=== PATIENT | female | born 1985 | race Caucasian/White ===

== ENCOUNTER 2018-07-29 05:29 | Inpatient (IN) | payer OTHER ==
[~2018-07-29] VITALS: Ht 170.2 cm; Wt 89.7 kg
[~2018-07-29 05:29] MED LIST: ACET-1157 PO
[2018-07-29 05:34] VITALS: Ht 170.2 cm; Wt 89.7 kg
[2018-07-29] MEDS ORDERED: PREN-6 PO (05:38)
[2018-07-29] MEDS ORDERED: METHYLERGONOVINE 0.2 MG INJ IM PRN ×2 (06:00→12:00)
[2018-07-29] MEDS ORDERED: CEFAZOLIN 2 GM/50 ML (PMX) 50 ML IVPB SCH ×2 (06:00→12:00)
[2018-07-29] MEDS ORDERED: CARBOPROST 250 MCG INJ IM PRN ×2 (06:00→12:00)
[2018-07-29] MEDS ORDERED: OXYTOCIN 30 UNITS/LR 500 ML IV SCH ×2 (06:00→11:50)
[2018-07-29] MEDS ORDERED: MISOPROSTOL 200 MCG TAB PR PRN ×2 (06:00→12:00)
[2018-07-29] MEDS ORDERED: OXYTOCIN 30 UNITS/LR 500 ML IV PRN ×2 (06:00→12:00)
[2018-07-29] MEDS: LACTATED RINGER'S 1,000 ML IV SCH ×3 (06:34→23:53)
[2018-07-29] MEDS ORDERED: CITRIC ACID/NA CITRATE 30 ML CUP ONE (07:26)
--- NOTE | 2018-07-29 07:28 | PREAC ---
Date/Time of Note Date/Time of Note DATE: 07/29/18 TIME: 07:27 Anesthesia Eval and Record Evaluation Time Pre-Procedure Interview DATE: 07/29/18 TIME: 07:27 Age 33 Sex female NPO: 8 hrs Preoperative diagnosis repeat csection, sterlization Planned procedure c section BTL Past Medical History Past Medical History: None Surgery & Anesthesia Issues No known issue Meds Anticoagulation: No Beta Roopa within 24 hr: No Reason Beta Roopa not given: Pt. not on B-Roopa Reported Medications Vits #93-Iron Fum-FA ( Formula) 1 Each Tablet, 1 TAB PO DAILY, TAB 07/29/18 Acetaminophen With Codeine (Tylenol W-Codeine #3 Tablet) 1 Tab Tablet, 1 TAB PO QID 05/20/11 Current Medications Lactated Ringer's 1,000 ml @ 125 mls/hr Q8H IV Last administered on 07/29/18at 06:34; Admin Dose 125 MLS/HR; Start 07/29/18 at 05:38 Cefazolin Sodium/ Dextrose 50 ml @ 100 mls/hr ONCE IVPB ; Start 07/29/18 at 06: 00 Oxytocin/Lactated Ringer's 500 ml @ 125 mls/hr POST IV ; Start 07/29/18 at 06:00 Oxytocin/Lactated Ringer's 500 ml @ 0 mls/hr ONCE PRN IV .VAGINAL BLEEDING; Start 07/29/18 at 06:00 Methylergonovine Maleate (Methergine) 0.2 mg ONCE PRN IM .VAGINAL BLEEDING; Start 07/29/18 at 06:00 Carboprost Tromethamine (Hemabate) 250 mcg ONCE PRN IM .VAGINAL BLEEDING; Start 07/29/18 at 06:00 Misoprostol (Cytotec) 1,000 mcg ONCE PRN TN .VAGINAL BLEEDING; Start 07/29/18 at 06:00 Meds reviewed: Yes Allergies Coded Allergies: No Known Drug Allergy (Verified Allergy, Unknown, 07/29/18) Allergies Reviewed: Yes Labs/Studies Labs Reviewed: Reviewed by anesthesiologist Result Diagram: 07/29/18 0600 Laboratory Tests 07/29/18 06:00 test: Positive Studies: ECG (n/a), CXR (n/a) Pre-procedure Exam Airway: Adequate mouth opening Mallampati: Mallampati I Teeth: Normal Lung: Normal Heart: Normal ASA Physical Status ASA physical status: 2 Emergency: None Planned Anesthetic Neuraxial: Spinal Planned Pain Management Sub-arachniod narcotics Pre-operative Attestations Prior to commencing anesthesia and surgery, the patient was re-evaluated, there was verification of: *The patient's identity *The results of appropriate recent lab work and preoperative vital signs *The above evaluation not changing prior to induction *Anesthetic plan, risk benefits, alternative and complications discussed with patient/family; questions answered; patient/family understands, accepts and wishes to proceed. ALICIA KOHLER MD July 29, 2018 07:28
[2018-07-29] MEDS ORDERED: CITRIC ACID/NA CITRATE 30 ML CUP PO ONE (07:30)
[2018-07-29] MEDS ORDERED: KETOROLAC 30 MG INJ ONE (07:41)
[2018-07-29] MEDS ORDERED: morphine SULFATE/PF (10 MG/10 ML) INJ ONE (07:41)
[2018-07-29] MEDS ORDERED: METOCLOPRAMIDE 10 MG INJ ONE (07:41)
[2018-07-29] MEDS ORDERED: ONDANSETRON 4 MG INJ ONE (07:41)
[2018-07-29] MEDS ORDERED: EPHEDrine 25 MG/5 ML SYG ONE (07:53)
[2018-07-29] MEDS ORDERED: PHENYLephrine (100 MCG/ML) 10ML SYG ONE (07:59)
--- NOTE | 2018-07-29 08:05 | PREOPHP ---
DATE OF ADMISSION: 07/29/2018 HISTORY OF PRESENT ILLNESS: Ms. Sarah Flaherty is a 33-year-old 4, para 3, EDC 08/04/2018 intrau terine at 39 weeks gestational age with a history of previous delivery x3, admitte d today for elective repeat delivery with tubal sterilization. She denies any contractions, vaginal bleeding, or discharge. Her care took place at [facility]. PAST MEDICAL HISTORY: None. MEDICATIONS: vitamins. PAST SURGICAL HISTORY: x3 previous section. OBSTETRIC HISTORY: x3 previous section. GYNECOLOGIC HISTORY: 12, regular 3 to 4 days. She denies any sexually transmitted infections. Sexu ally active with 1 partner. SOCIAL HISTORY: She denies any smoking, drugs or alcohol. FAMILY HISTORY: None. REVIEW OF SYSTEMS: All within normal except history of present illness. PHYSICAL EXAMINATION: HEENT: Within normal. LUNGS: CTA bilateral. CARDIOVASCULAR: S1, S2, regular rhythm. ABDOMEN: Gravid, nontender. Negative CVA bilateral. EXTREMITIES: Negative calf tenderness. PELVIC: Vaginal exam deferred. heart tracing category 1. ASSESSMENT: Intrauterine at 39 weeks gestational age, previous x3, desires elect vance repeat delivery with bilateral tubal sterilization, declines vaginal after cesarea n. PLAN: Consent for repeat delivery with bilateral tubal sterilization. Risks, benefits and alternatives were explained and all questions were answered. Dictated By: JOYCE JUDD/SHANICE Conf#: [id number] DID#: [id number] CC: JOYCE GRIFFITH MD;*EndCC*
[2018-07-29] MEDS ORDERED: OXYTOCIN 30 UNITS/LR 500 ML IV ONE (08:37)
--- NOTE | 2018-07-29 08:49 | OPPN ---
Date/Time of Note Date/Time of Note DATE: 07/29/18 TIME: 08:47 Operative Report Planned Procedure Procedure date July 29, 2018 Procedure(s) repeat low transverse CD with bilateral tubal salpingectomy Performed by see signature line Radiology Teacher: CATHI PIERSON M.D. 2nd Radiology Teacher none Anesthesiologist: ALICIA KOHLER MD Pre-procedure diagnosis Intrauterine at 39 weeks gestational age, previous x3, desires elective repeat delivery with bilateral tubal sterilization, declines vaginal after [id number] Anesthesia Type: Hsbsu2f spinal Post-Procedure Post-procedure diagnosis same Findings a viable male 9/9 weight 3036. normal uterus tubes and ovaries Estimated Blood Loss: 500 - 600 mls (500) Specimen(s) right and left fallopian tubes Grafts/Implant(s) none Complication(s) none JOYCE GRIFFITH MD July 29, 2018 08:49
[2018-07-29] MEDS ORDERED: ONDANSETRON 4 MG INJ IV PRN ×2 (09:00)
[2018-07-29] MEDS ORDERED: DIPHENHYDRAMINE 50 MG INJ IV PRN ×2 (09:00)
[2018-07-29] MEDS ORDERED: NALOXONE (0.4 MG/ML) INJ IV PRN (09:00)
[2018-07-29] MEDS ORDERED: morphine 2 MG INJ IV PRN ×6 (09:00)
[2018-07-29] MEDS ORDERED: KETOROLAC 30 MG INJ IV PRN ×2 (09:00)
[2018-07-29 12:00] VITALS: BP 99/62; PULSE 77; RESP 17
[2018-07-29] MEDS ORDERED: NA PHOSPHATE/BIPHOS 133 ML ENEMA PR PRN (12:00)
[2018-07-29] MEDS ORDERED: NACL 0.9% 3 ML SYG IV SCH (12:00)
[2018-07-29] MEDS ORDERED: OXYCODONE/ACETAMINOPHEN (5/325) TAB PO PRN ×2 (12:00)
[2018-07-29] MEDS ORDERED: LANOLIN HPA 1 PKT TOP PRN (12:00)
[2018-07-29] MEDS: IBUPROFEN 800 MG TAB PO SCH ×2 (14:00→21:31)
[2018-07-29] MEDS: CEFAZOLIN 2 GM/50 ML (PMX) 50 ML IVPB SCH ×2 (15:27→23:52)
[2018-07-29 16:00] VITALS: BP 93/55; PULSE 85; RESP 17
[2018-07-29 20:00] VITALS: BP 102/54; PULSE 80; RESP 19
[2018-07-30 04:11] VITALS: BP 96/56; PULSE 86; RESP 21
[2018-07-30] MEDS: LACTATED RINGER'S 1,000 ML IV SCH ×2 (05:38→13:38)
[2018-07-30] MEDS: IBUPROFEN 800 MG TAB PO SCH ×3 (06:00→21:58)
--- NOTE | 2018-07-30 07:39 | PAC ---
Date/Time of Note Date/Time of Note DATE: 07/30/18 TIME: 07:39 Post-Anesthesia Notes Post-Anesthesia Note Last documented vital signs Vital Signs Date Temp Pulse Resp B/P (MAP) Pulse Ox O2 O2 Flow FiO2 Time Delivery Rate 07/30/18 98.2 86 21 96/56 (69) 97 Room Air 04:11 07/29/18 96 20:00 Activity: WNL Respiratory function: WNL Cardiovascular function: WNL Mental status: Baseline Pain reasonably controlled: Yes Hydration appropriate: Yes Nausea/Vomiting absent: No ALICIA KOHLER MD July 30, 2018 07:39
--- NOTE | 2018-07-30 07:40 | OPPN ---
Date/Time of Note Date/Time of Note DATE: 07/30/18 TIME: 07:39 Anesthesia Follow up Anesthesia Follow up Last documented vital signs Vital Signs Date Temp Pulse Resp B/P (MAP) Pulse Ox O2 O2 Flow FiO2 Time Delivery Rate 07/30/18 98.2 86 21 96/56 (69) Room Air 04:11 07/29/18 96 20:00 Respiratory function: WNL Cardiovascular function: WNL Comments A 33 year old female s/p spnal duramorph for post op pain per surgeon pod 1 is fine . no pain itching, headache, n/v, neural deficit. care per surgery ALICIA KOHLER MD July 30, 2018 07:40
[2018-07-30] MEDS: CEFAZOLIN 2 GM/50 ML (PMX) 50 ML IVPB SCH (07:49)
[2018-07-30 07:55] VITALS: BP 94/53; PULSE 80; RESP 18
--- NOTE | 2018-07-30 08:26 | QN ---
Documentation Comment progress note pod 1 patient seen and evaluated no complaints castro clear vs stable afebrile ab soft nt dressing clean/dry extremity no edema no calf tenderness a/ sp cd with tubal sterilization pod 1 stable afebrile p/ iron supplement encourage ambulation repeat h/h in am JOYCE GRIFFITH MD July 30, 2018 08:26
--- NOTE | 2018-07-30 08:35 | OPR ---
DATE OF OPERATION: PREOPERATIVE DIAGNOSES: Intrauterine at 39 weeks gestational age, previous x3, d esires elective repeat delivery with bilateral tubal sterilization, declines vaginal a fter section. POSTOPERATIVE DIAGNOSES: Intrauterine at 39 weeks gestational age, previous x3, desires elective repeat delivery with bilateral tubal sterilization, declines vaginal after section. PROCEDURE PERFORMED: Repeat low transverse delivery with bilateral tubal salpingectomy. SURGEON: Jose A Griffith M.D. ICE CARVER: Dr. Loza. ANESTHESIA: Spinal. COMPLICATIONS: None. ESTIMATED BLOOD LOSS: 500 mL. FINDINGS: A viable male, 9 and 9 respectively at 1 and 5 minutes, weight 3036 grams. Normal u terus, tubes and ovaries. PATHOLOGY: Right and left fallopian tube. PROCEDURE: After explaining the risks, benefits and alternatives, the patient had consent signed in chart, the patient was taken to the operating room where spinal anesthesia was found to be adequate. She was then prepared and draped in normal sterile fashion in dorsal supine position with a leftward tilt. A Pfannenstiel skin incision was then made with a scalpel and carried to the underlying of th e fascia. The fascia was incised in the midline and incision was extended laterally with Parekh scisso rs. The superior aspect of the fascial incision was grasped with curved clamps, elevated and the und erlying rectus muscles dissected off bluntly. Attention was then turned to the inferior aspect of in cision, which in similar fashion was grasped, tented up with curved clamps and the rectus muscles dis sected off bluntly. The rectus muscle was in midline, peritoneum identified, entered sharp ly with Metzenbaum scissors. The peritoneal incision was extended superiorly inferiorly with good vi sualization of bladder. The bladder blade was inserted and the lower uterine segment incised in paul sverse fashion with a scalpel. The uterine incision was extended laterally. The bladder blade was r emoved. The 's head delivered atraumatically. The nose and mouth were suctioned and cord clam ped and cut. The infant was handed off to awaiting parts and service manager. The placenta was then removed. Th e uterus extracted of all clots and debris. The uterine incision was repaired with 1-0 chromic in a running locked fashion. A second layer of same suture was used for imbrication obtaining excellent h emostasis. At this point, the right fallopian tube was grasped with a Kevin. The right fallopian tube was ligated with 2-0 plain gut x2 and excised and sent to pathology. Similarly, the left fallop daniela tube was ligated and excised. Good hemostasis was noted. The uterus was returned to the abdomen . The gutters were cleared of all clots. The peritoneum and rectus abdominis muscles were reapproxi mated with 2-0 Vicryl in interrupted fashion. The fascia was reapproximated with 0 Vicryl in a runni ng fashion. The skin was closed with gagandeep. The patient tolerated procedure well. All sponge, la p and needle counts were correct. The patient was taken to recovery room in stable condition. Dictated By: JOSE A JUDD/SHANICE Conf#: [id number] DID#: [id number] CC: JOSE A GRIFFITH MD;*EndCC*
[2018-07-30] MEDS: SENNA/DOCUSATE NA (8.6MG/50MG) TAB PO SCH ×2 (09:57→21:58)
[2018-07-30] MEDS: FERROUS SULFATE (EC) 325 MG TAB PO SCH ×2 (09:57→21:58)
[2018-07-30 16:00] VITALS: BP 94/58; PULSE 89; RESP 20
[2018-07-30 20:00] VITALS: BP 108/66; PULSE 18; RESP 18
[2018-07-31 04:00] VITALS: BP 97/53; PULSE 80; RESP 18
[2018-07-31] MEDS: IBUPROFEN 800 MG TAB PO SCH ×3 (06:13→21:49)
--- NOTE | 2018-07-31 06:21 | PD.PPDC ---
[employer]GRAM[employer] Discharge Instruction Condition Hsiyd4Bv Patient Condition: Tuhzw2w Fair Diet Ikbws8Qq Diet: Oiffq0h Resume Regular Diet Activity/Restrictions Tfoyb6Wq Activity: Uilnh2t Normal Activity May Shower Qprcj5Om Restrictions: Sdkoo0j No Exercising No Lifting No Driving No Sexual Activity Nothing in the Vagina No [place] No Tampons, douche Follow-up Follow-up with Physician: 3, Day/Days Provider Information: to remove gagandeep Return to clinic for Zlglb0Ce EYE CARE PROFESSIONAL Instructions: Octmf3l Fever greater than 101 Chills Worsening abdominal pain Excessive Vaginal Bleeding More than 2 pads per hour Unable to tolerate diet Dugyy9Qc OB Instructions: Xavos1e Breast Tenderness Depression Blurried Vision Headache Ckmdt1Ok Surgical Instructions: Dvjre6n Incisional Drainage Incisional Redness JOYCE GRIFFITH MD July 31, 2018 06:21
--- NOTE | 2018-07-31 06:21 | QN ---
Documentation Comment progress note pod 2 patient seen and evaluated no complaints castro clear vs stable afebrile ab soft nt c/d/i no distention extremity no edema no calf tenderness a/ sp cd with tubal sterilization pod 2 stable afebrile p/ discharge home tomorrow JOYCE GRIFFITH MD July 31, 2018 06:21
[2018-07-31 08:00] VITALS: BP 99/56; PULSE 75; RESP 16
[2018-07-31] MEDS: FERROUS SULFATE (EC) 325 MG TAB PO SCH ×2 (09:35→21:49)
[2018-07-31] MEDS: SENNA/DOCUSATE NA (8.6MG/50MG) TAB PO SCH ×2 (09:35→21:49)
[2018-07-31 15:35] VITALS: BP 98/57; PULSE 76; RESP 18
[2018-07-31 20:45] VITALS: BP 104/62; PULSE 90; RESP 18
--- NOTE | 2018-08-01 02:44 | DS ---
DATE OF ADMISSION: 07/29/2018 DATE OF DISCHARGE: 08/01/2018 PRIMARY DIAGNOSIS: Intrauterine at 39 weeks gestational age, previous x3, desire s elective repeat delivery with bilateral tubal sterilization. PROCEDURE: Repeat low transverse delivery with bilateral tubal salpingectomy. CONDITION ON DISCHARGE: Stable. ACTIVITY: None per vagina, no lifting x6 weeks. DIET: Regular. MEDICATIONS ON DISCHARGE: 1. Motrin. 2. Iron. 3. Colace. DISCHARGE SUMMARY: Ms. Sarah Flaherty underwent a repeat delivery with bilateral tubal steriliz ation on 07/29/2018. She had a viable male, 9 and 9 respectively at 1 and 5 minutes, weight 30 36 grams. She had an uneventful postop day #1 and #2. She was discharged on postop day #3. Her inc ision is clean, dry, and intact. She was ambulating, tolerating diet, positive flatulence, positive bowel and she will follow up in the clinic in 2 to 3 days to remove her gagandeep. Dictated By: JOYCE JUDD/SHANICE Conf#: [id number] DID#: [id number]
[2018-08-01 04:30] VITALS: BP 95/65; PULSE 75; RESP 19
[2018-08-01] MEDS: IBUPROFEN 800 MG TAB PO SCH ×2 (05:52→13:36)
[2018-08-01 08:00] VITALS: BP 105/56; PULSE 79; RESP 16
[2018-08-01] MEDS: SENNA/DOCUSATE NA (8.6MG/50MG) TAB PO SCH (09:50)
[2018-08-01] MEDS: FERROUS SULFATE (EC) 325 MG TAB PO SCH (09:50)
--- NOTE | 2018-08-01 13:07 | DS ---
Date/Time of Note Date/Time of Note DATE: 08/01/18 TIME: 13:06 Obstetrical Discharge Record Final Diagnosis Final Diagnosis: Term delivered Section Section: Repeat Complications Augmentation: No Induction: No Rupture of Membranes: No Condition on Discharge Physical Assessment Last Vitals: vss afebrile Voiding: Yes Bowel Movement: Yes Breast: Soft, non-tender Fundus: Firm Abdomen and Incision: soft wound dry Episiotomy: n/a Calf Tenderness: No Patient Condition: Stable GABRIEL PIMENTEL MD August 01, 2018 13:07
--- NOTE | 2018-08-01 13:09 | PD.PPDC ---
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
--- NOTE | 2018-08-02 15:28 | DELSUM ---
Delivery Summary A-C Datetime Report Generated by CPN: 08/02/2018 15:28 DELIVERY PERSONNEL Flumer: Villondo, Shannon MATERNAL INFORMATION Delivery Anesthesia: Spinal Medications in Delivery: See Anesthesiologist notes Delivery QBL (ml): 600 Placenta Cultured: No Maternal Complications: None LABOR SUMMARY EDC: 08/04/2018 00:00 No. Babies in Womb: 1 Attempted: No Labor Anesthesia: None LABOR INFORMATION Reason for Induction: Not Applicable Oxytocin: N/A Group B Beta Strep: Negative Antibiotics # of Doses: 1 Antibiotics Time of Last Dose: 07/29/2018 07:49 Steroids Given: None Reason Steroids Not Administered: Not Applicable MEMBRANES Membranes Rupture Method: Artificial Rupture of Membranes: 07/29/2018 08:10 Length of Rupture (hr): 0.00 Amniotic Fluid Color: Clear Amniotic Fluid Amount: Moderate Amniotic Fluid Odor: None STAGES OF LABOR Stage 3 hr: 0 Stage 3 min: 2 CSECTION DELIVERY Primary Indication: Repeat Elective Secondary Indication: N/A CSection Urgency: Elective CSection Incidence: Repeat Labor: No Labor Elective: N/A CSection Incision: Lower Uterine Transverse Sterilization Procedure: [place] BABY A INFORMATION Infant Delivery Date/Time: 07/29/2018 08:10 Method of Delivery: Born in Route : No : N/A Forceps: N/A Vacuum Extraction: N/A Shoulder Dystocia : No SHOULDER DYSTOCIA BABY A Infant Delivery Date/Time: 07/29/2018 08:10 PRESENTATION/POSITION BABY A Presentation: Cephalic Cephalic Presentation: Vertex Vertex Position: Left Occipital Anterior Breech Presentation: N/A PLACENTA INFORMATION BABY A Placenta Delivery Time : 07/29/2018 08:12 Placenta Method of Delivery: Manual Removal Placenta Status: Delivered SCORES BABY A Heart Rate 1 min: >100 bpm Resp Effort 1 min: Good Cry Reflex Irritability 1 min: Cough/Sneeze/Pulls Away Muscle Tone 1 min: Active Motion Color 1 min: Body [place], Extremit Blue Resuscitation Effort 1 min: Tactile Stimulation SCORE 1 MIN: 9 Heart Rate 5 min: >100 bpm Resp Effort 5 min: Good Cry Reflex Irritability 5 min: Cough/Sneeze/Pulls Away Muscle Tone 5 min: Active Motion Color 5 min: Body [place], Extremit Blue Resuscitation Effort 5 min: Tactile Stimulation SCORE 5 MIN: 9 INFORMATION BABY A Gestational Age at Delivery: 39.1 Gestational Status: Full Term- 39- 40.6 Weeks Infant Outcome : Liveborn Condition : Stable Sex: Male IDENTIFICATION/MEDS BABY A ID Band Number: [id number] ID Band Location: Right Leg; Left Arm Sensor Applied: Yes Sensor Number: [id number] Sensor Location : Cord Clamp Vitamin K Given : Not Given Erythromycin Given: Not Given WEIGHT/LENGTH BABY A Birthweight (gm): 3036 Infant Weight (lb): 6 Weight (oz): 11 Length (in): 19.00 Length (cm): 48.26 CORD INFORMATION BABY A No. Cord Vessels: 3 Nuchal Cord : N/A Cord Blood Taken: Yes Suction: Mouth; Nose ASSESSMENT BABY A Complications: None Physical Findings at Delivery: Within Normal Limits Infant Respirations: Appears Normal Billing Clerk/ALS Called : No Infant Care By: Mao. [place] Transferred To: Remains with Mother
== END 2018-08-01 14:55 | disposition home or self-care (01) | DRG 785 ==
LOC: L-D 05:29 → PP1 11:45
PROVIDERS: ADMIT Obstetrics & Gynecology; ATTEND Obstetrics & Gynecology
PROC: 10D00Z1 Extraction of Products of Conception, Low, Open Approach (ICD-10-PCS; principal; 2018-07-30)
PROC: 0UB70ZZ Excision of Bilateral Fallopian Tubes, Open Approach (ICD-10-PCS; 2018-07-30)
DX: O34.211 Maternal care for low transverse scar from previous cesarean delivery (principal); Z3A.39 39 weeks gestation of pregnancy; Z37.0 Single live birth; Z30.2 Encounter for sterilization
CPT/HCPCS: 80307; 85014; 85018; 85025; 85610; 85730; 86592; 86850; 86885; 86900; 86901; 87340; 88302; 99464; J0690; J1885; J2210; J2274; J2370; J2405; J2590; J2765; J2790; J7120